=== PATIENT | male | born 1990 | race Caucasian/White ===

== ENCOUNTER 2020-12-07 03:14 | Emergency (ER) | payer SELFPAY ==
--- NOTE | ~2020-12-07 | XR_ITS ---
EXAMINATION: XR chest 2V EXAM DATE: 12/07/2020 03:49 INDICATION: Left chest pain X 1 HOUR. TECHNIQUE: Frontal and lateral projections of the chest obtained and reviewed. Comparison is made to prior examination from 09/06/2018. FINDINGS: The lungs are clear. There are no pleural effusions. The cardiomediastinal silhouette is within normal limits. There is no pneumothorax suspected. The bones and soft tissues are unremarkab le. IMPRESSION: No acute cardiopulmonary findings. Reviewed, dictated and finalized at location A.
[2020-12-07 03:14] VITALS: BP 150/96; PULSE 97; RESP 20; TEMP 36.6; O2SAT 97
--- NOTE | 2020-12-07 03:35 | ECG_ITS ---
Measurements Intervals [place] Rate: 110 P: 79 [place]: 120 QRS: 88 QRSD: 94 T: 58 QT: 320 QTc: 434 Interpretive Statements SINUS TACHYCARDIA INCOMPLETE RIGHT BUNDLE BRANCH BLOCK MINIMAL Q WAVES- ANTEROLAT/INF LEADS ABNORMAL ECG Electronically Signed On 12-07-2020 8:31:23 CDT by Ravinder Herbert D.O.
[2020-12-07 03:39] VITALS: PULSE 97
[2020-12-07 03:43] LABS: Basophils Absolute Auto 0.04 K/mm3 (0.00-0.10); Basophils Percent Auto 0.3 % (0.0-1.0); Eosinophils Absolute Auto 0.05 K/mm3 (0.02-0.50); Eosinophils Percent Auto 0.4 % (1.0-6.0); Hematocrit 44.3 % (40.0-54.0); Hemoglobin 15.2 g/dL (14.0-18.0); Immature Granulocyte Absolute 0.06 K/mm3 (0.00-0.00); Immature Granulocyte Percent A 0.4 % (0.0-0.0); Lymphocytes Absolute Auto 2.32 K/mm3 (1.10-4.50); Mean Corpuscular HGB Conc 34.3 g/dL (32.0-36.0); Mean Corpuscular Volume 87.4 fL (78.0-102.0); Mean Platelet Volume 9.5 fl (8.7-11.0); Monocytes Absolute Auto 0.99 K/mm3 (0.10-0.90); Monocytes Percent Auto 7.3 % (2.0-11.0); Neutrophils Absolute Auto 10.2 K/mm3 (1.7-7.2); Neutrophils Percent Auto 74.6 % (50.0-70.0); Platelet Count Result 285 K/mm3 (150-420); Red Blood Count 5.07 M/mm3 (4.70-6.10); Red Cell Distribution Width 12.1 % (11.6-14.4); White Blood Count 13.6 K/mm3 (4.8-10.8)
[2020-12-07] MEDS: SODIUM CHLORIDE 0.9% IV 1,000 ML 999 ML IV CONT (03:52)
[2020-12-07 03:59] LABS: Alanine Aminotransferase 27 U/L (16-63); Albumin Level 4.3 g/dL (3.4-5.0); Alkaline Phosphatase 88 U/L (46-116); Anion Gap 9 mmol/L (8-16); Aspartate Amino Transferase 25 U/L (15-37); Bilirubin,Total 0.3 mg/dL (0.00-1.00); Blood Urea Nitrogen 13 mg/dL (7-18); Calcium 9.1 mg/dL (8.5-10.1); Carbon Dioxide 30 mmol/L (21-32); Chloride 101 mmol/L (98-108); Creatine Kinase 486 U/L (39-308); Estimated CRCL calculation 88 ml/min; Estimated Glomerular Filt Rate > 60; Glucose 92 mg/dL (70-99); Osmolality Calculated 290 mOsm/kg (285-295); Potassium 3.3 mmol/L (3.5-5.1); Sodium 140 mmol/L (136-145); Total Protein 7.2 g/dL (6.4-8.2)
--- NOTE | 2020-12-07 04:10 | ED.CHESTPAIN ---
HPI - Chest Pain General Chief Complaint: Chest Pain Stated Complaint: Chest Pain Source: patient Mode of arrival: ambulatory Limitations: no limitations History of Present Illness HPI narrative: this is a 30-year-old male presents with some chest discomfort off and on for the last couple of days history of meth abuse with some shortness of breath no nausea vomiting no abdominal pain no fever chills complaint: chest pain Pertinent past history: prior [place] Onset (ago): day(s) Timing of current episode: constant Prior episodes: Yes Onset: during rest and during exertion Pain radiation: none Severity: mild Quality: aching Relieving factors: nothing Exacerbating factors: nothing Related Data Home Medications Medication Instructions Recorded Confirmed No Home Medications 12/07/20 12/07/20 Allergies Allergy/AdvReac Type Severity Reaction Status Date / Time No Known Allergies Allergy Unverified 09/21/17 16:33 Review of Systems Review of Systems: All systems reviewed & are unremarkable except as noted in HPI and below PMFSH Past Medical History Medical History No active medical problems Surgical History Surgical History No history of previous surgery Social History Social History Smoking packs per day: 1 Smoking cigarettes per day: 20.0 Years smoked: 12 Smoking pack-years: 12.00 Smoking status: Current every day smoker Tobacco type: cigarettes Alcohol intake: current Substance use: never Substance use type: marijuana, amphetamines and methamphetamine Exam Const: General: no acute distress Orientation/consciousness: patient oriented x3 HENMT: Head: normal to inspection Eyes: Conjunctivae: conjunctivae normal Pupils: Equal, round and reactive pupils present Neck: Neck: normal visual inspection and no lymphadenopathy Chest: Chest palpation & inspection: normal inspection of the chest Resp: Effort & Inspection: normal respiratory effort Cardio: Rate: regular rate Rhythm: regular rhythm GI: Auscultation: normal bowel sounds Skin: General skin exam: normal color Rashes: no rashes Extrem: General: normal to inspection Psych: Appearance: disheveled Mental Status: mental status grossly normal Affect: Anxious affect present Course Course Emergency Course: EKG and labs reviewed with patient and advised follow-up with his primary care physician Vital Signs Vital signs: Vital Signs Temperature 36.6 C 12/07/20 03:14 Pulse Rate 97 12/07/20 03:14 Respiratory Rate 20 12/07/20 03:14 Blood Pressure 150/96 H 12/07/20 03:14 Pulse Oximetry 97 12/07/20 03:14 Temperature 36.6 C 12/07/20 03:14 Pulse Rate 97 12/07/20 03:39 Respiratory Rate 20 12/07/20 03:14 Blood Pressure 150/96 H 12/07/20 03:14 Pulse Oximetry 97 12/07/20 03:14 MDM - Chest Pain Lab Data Result diagrams: 12/07/20 03:33 12/07/20 03:33 Labs: Lab Results 12/07/20 12/07/20 Range/Units 03:33 03:33 WBC 13.6 H (4.8-10.8) K/mm3 RBC 5.07 (4.70-6.10) M/mm3 Hgb 15.2 (14.0-18.0) g/dL Hct 44.3 (40.0-54.0) % MCV 87.4 (78.0-102.0) fL MCH 30.0 (27.0-31.0) pg MCHC 34.3 (32.0-36.0) g/dL RDW 12.1 (11.6-14.4) % Plt Count 285 (150-420) K/mm3 MPV 9.5 (8.7-11.0) fl Immature Gran % (Auto) 0.4 H (0.0-0.0) % Neut % (Auto) 74.6 H (50.0-70.0) % Lymph % (Auto) 17.0 L (18.0-42.0) % [facility] [place] [facility] % (Auto) 7.3 (2.0-11.0) % Eos % (Auto) 0.4 L (1.0-6.0) % Baso % (Auto) 0.3 (0.0-1.0) % Lymph # (Auto) 2.32 (1.10-4.50) K/mm3 [facility] [place] [facility] # (Auto) 0.99 H (0.10-0.90) K/mm3 Eos # (Auto) 0.05 (0.02-0.50) K/mm3 Baso # (Auto) 0.04 (0.00-0.10) K/mm3 Abs Immat Gran (auto) 0.06 H (0.00-0.00) K/mm3 Absolute Neuts (auto) 10.2 H (1.7-7.2) K/mm3
[2020-12-07 04:17] VITALS: BP 128/75; PULSE 93; RESP 20; TEMP 36.9; O2SAT 98
== END 2020-12-07 04:27 | disposition home or self-care (01) ==
PROVIDERS: Emergency Provider Emergency Medicine; PCP Family Medicine
DX: M94.0 Chondrocostal junction syndrome [Tietze] (principal); R07.89 Other chest pain
CPT/HCPCS: 36415; 71046; 80053; 82550; 84484; 85025; 93005; 99283; 99284; J7030

== ENCOUNTER 2021-04-14 12:55 | Emergency (ER) | payer OTHER, SELFPAY ==
--- NOTE | ~2021-04-14 | XR_ITS ---
EXAMINATION: XR chest 2V 04/14/2021 13:14 INDICATION: Chest pain PROCEDURE: 2 view chest COMPARISON: Comparison to multiple prior studies sequentially, with oldest reviewed study dated 02/21. FINDINGS: The lungs are clear. The cardiomediastinal silhouette is within normal limits. There are no pleural effusions. There is no pneumothorax suspected. IMPRESSION: 1: NO ACUTE CARDIOPULMONARY DISEASE. Reviewed, dictated and finalized at location A.
--- NOTE | 2021-04-14 12:57 | ECG_ITS ---
Measurements Intervals [place] Rate: 94 P: 75 [place]: 127 QRS: 87 QRSD: 86 T: 55 QT: 330 QTc: 415 Interpretive Statements SINUS RHYTHM ST ELEVATION IN ANTEROLAT/INF LEADS, PROBABLY EARLY REPOLARIZATION MINIMAL Q WAVES- ANTEROLAT/INF LEADS BORDERLINE ECG Electronically Signed On 04-14-2021 14:40:50 CDT by Ravinder Herbert D.O.
--- NOTE | 2021-04-14 13:14 | PC.NURSE ---
patient caught attempting to leave ED with IV established by EMS, patient declines any other testing and requests to leave. Patient alert x3 at time of walk out. patient declines triage.
== END 2021-04-14 13:14 | disposition left against medical advice (07) ==
PROVIDERS: Emergency Provider Emergency Medicine; PCP Family Medicine
DX: Z53.21 Procedure and treatment not carried out due to patient leaving prior to being seen by health care provider (principal); R07.9 Chest pain, unspecified
CPT/HCPCS: 71046; 93005; 99199

== ENCOUNTER 2021-05-05 10:14 | Emergency (ER) | payer OTHER, SELFPAY ==
--- NOTE | ~2021-05-05 | XR_ITS ---
EXAMINATION: XR chest 1V portable DATE: 05/05/2021 10:35 INDICATION: Shortness of breath TECHNIQUE: frontal view of the chest was obtained. COMPARISON: Chest radiograph dated 04/14/2021 FINDINGS: The lungs remain clear with no focal airspace opacities, pulmonary edema, pleural effusion or pneumot horax. Symmetric bilateral nipple shadows project over the lateral aspect of the bilateral lower lung zones. The cardiomediastinal silhouette is normal. Visualized bones and soft tissues are unremarkabl e. IMPRESSION: 1. No acute cardiopulmonary disease. Reviewed, dictated and finalized at location A. ENGINEER
--- NOTE | 2021-05-05 10:17 | ECG_ITS ---
Measurements Intervals [place] Rate: 102 P: 78 [place]: 124 QRS: 86 QRSD: 94 T: 54 QT: 346 QTc: 452 Interpretive Statements SINUS TACHYCARDIA MINIMAL Q WAVES- ANTEROLAT/INF LEADS ST ELEVATION IN ANTEROLAT/INF LEADS, PROBABLY EARLY REPOLARIZATION BORDERLINE ECG Electronically Signed On 05-06-2021 6:37:35 MEDICAL IMAGING TECH by Ravinder Herbert D.O.
[2021-05-05 10:27] VITALS: BP 142/107; PULSE 96; RESP 18; TEMP 36.9; O2SAT 100
[2021-05-05 10:33] LABS: Basophils Absolute Auto 0.02 K/mm3 (0.00-0.10); Basophils Percent Auto 0.2 % (0.0-1.0); Eosinophils Absolute Auto 0.07 K/mm3 (0.02-0.50); Eosinophils Percent Auto 0.6 % (1.0-6.0); Hematocrit 43.6 % (40.0-54.0); Immature Granulocyte Absolute 0.04 K/mm3 (0.00-0.00); Immature Granulocyte Percent A 0.3 % (0.0-0.0); Lymphocytes Percent Auto 15.5 % (18.0-42.0); Mean Corpuscular HGB Conc 34.4 g/dL (32.0-36.0); Mean Corpuscular Volume 87.2 fL (78.0-102.0); Mean Platelet Volume 9.1 fl (8.7-11.0); Monocytes Absolute Auto 1.02 K/mm3 (0.10-0.90); Monocytes Percent Auto 8.8 % (2.0-11.0); Neutrophils Absolute Auto 8.7 K/mm3 (1.7-7.2); Neutrophils Percent Auto 74.6 % (50.0-70.0); Platelet Count Result 309 K/mm3 (150-420); Red Cell Distribution Width 12.7 % (11.6-14.4); White Blood Count 11.6 K/mm3 (4.8-10.8)
[2021-05-05] MEDS: ASPIRIN 325 MG ENTERIC TABLET PO (10:37)
[2021-05-05] MEDS: SODIUM CHLORIDE 0.9% IV 1,000 ML 999 ML IV CONT (10:37)
[2021-05-05 10:52] LABS: Alanine Aminotransferase 33 U/L (16-63); Albumin Level 3.8 g/dL (3.4-5.0); Alkaline Phosphatase 65 U/L (46-116); Anion Gap 8 mmol/L (8-16); Aspartate Amino Transferase 32 U/L (15-37); Bilirubin,Total 0.6 mg/dL (0.00-1.00); Blood Urea Nitrogen 9 mg/dL (7-18); Calcium 9.3 mg/dL (8.5-10.1); Carbon Dioxide 30 mmol/L (21-32); Chloride 100 mmol/L (98-108); Estimated CRCL calculation 70 ml/min; Estimated Glomerular Filt Rate > 60; Glucose 84 mg/dL (70-99); Lactic Acid Reflex 0.8 mmol/L (0.4-2.0); Osmolality Calculated 283 mOsm/kg (285-295); Potassium 3.4 mmol/L (3.5-5.1); Sodium 138 mmol/L (136-145); Total Protein 6.6 g/dL (6.4-8.2); Troponin I 11.5 ng/L (0.00-60.4)
[2021-05-05 10:54] LABS: Ethanol < 3 mg/dL (0-6)
--- NOTE | 2021-05-05 11:01 | PC.NURSE ---
Urine taken to lab.
[2021-05-05 11:07] LABS: Add Urine Microscopic? NO; Appearance Urine Clear (Clear); Bilirubin Urine Negative (Negative); Blood Urine Negative (Negative); Color Urine Light Yellow (Yellow); Glucose Urine UA Negative (Negative); Ketones Urine Negative (Negative); Leukocyte Esterase Ur Negative (Negative); Nitrate Urine Negative (Negative); Protein Urine Negative (Negative); Specific Grav Ur <= 1.005 (1.010-1.020); Urobilinogen Urine 0.2 mg/dL (0.2-1.0)
[2021-05-05 11:12] LABS: Amphetamine Screen Urine Negative (Negative); Barbiturate Screen Urine Negative (Negative); Benzodiazepines Screen Urine Negative (Negative); Cannabinoid Screen Urine Negative (Negative); Cocaine Screen Urine Negative (Negative); Methadone Screen Urine Negative (Negative); Opiate Screen Urine Negative (Negative); Phencyclidine Screen Urine Negative (Negative)
--- NOTE | 2021-05-05 11:32 | PC.NURSE ---
Ok for pt to have sandwich per Dr. Paulino
--- NOTE | 2021-05-05 11:35 | ED.CHESTPAIN ---
HPI - Chest Pain General Chief Complaint: Chest Pain Stated Complaint: ambulance Time Seen by Provider: 05/05/21 10:16 Source: patient, EMS and RN notes reviewed Mode of arrival: EMS Limitations: no limitations History of Present Illness MD complaint: chest pain and other (and very anxious. pt denied recent etoh, drug or weed use. ) Pertinent past history: prior MA and other (CVA x 2 years ago) Onset (ago): hour(s) (6) Timing of current episode: constant Prior episodes: Yes Onset: during rest and during exertion Pain location: left chest Pain radiation: none Severity: mild Pain scale (0-10): 3 Quality: aching and dull Relieving factors: nothing Exacerbating factors: exertion Treatment prior to arrival: oxygen Related Data Home Medications Medication Instructions Recorded Confirmed No Home Medications 12/07/20 12/07/20 Allergies Allergy/AdvReac Type Severity Reaction Status Date / Time No Known Allergies Allergy Unverified 09/21/17 16:33 Review of Systems Review of Systems: All systems reviewed & are unremarkable except as noted in HPI and below Cardiovascular: Cardiovascular: Reports chest pain PMFSH Past Medical History Medical History Angina at rest No active medical problems Surgical History Surgical History No history of previous surgery Social History Social History Smoking packs per day: 1 Smoking cigarettes per day: 20.0 Years smoked: 12 Smoking pack-years: 12.00 Smoking status: Current every day smoker Tobacco type: cigarettes Alcohol intake: current Alcohol use details: drinks on the weekends Substance use: never Substance use type: marijuana, amphetamines and methamphetamine Exam Const: General: cooperative, no acute distress, alert and awake Nutritional Appearance: well nourished Orientation/consciousness: patient oriented x3 Limitations: no limitations HENMT: Head: normal to inspection, normocephalic and atraumatic Ears: hearing grossly normal bilaterally and external ears normal General nose exam: Normal external nose present and Normal nares present Face and sinus: normal facial exam Mouth: Yes Normal oral and palatal mucosa present, Yes lip normal, Yes tongue normal and Yes moist mucous membranes Throat: posterior oropharynx normal Eyes: General: appearance normal, both eyes and all related structures Visual Chaudhary: normal visual chaudhary by confrontation Eyelids: eyelids normal Conjunctivae: conjunctivae normal Sclera: sclerae normal Cornea: corneas normal Pupils: Equal, round and reactive pupils present EOM: EOMs intact bilaterally Neck: Neck: normal visual inspection, full ROM, no lymphadenopathy, no meningeal signs and trachea midline Lymphatic: no lymphadenopathy noted Chest: Chest palpation & inspection: normal inspection of the chest and normal palpation of entire chest wall Resp: Effort & Inspection: normal respiratory effort and able to speak in complete sentences Auscultation: clear to auscultation bilaterally Percussion: percussion normal Cardio: Jugular venous distension: no JVD Palpation: normal PMI Rate: regular rate Rhythm: regular rhythm Heart sounds: S1 normal heart sound present and S2 normal heart sound present GI: Inspection: normal to inspection GI Palp: No abdominal tenderness, Yes Soft to palpation and No Tenderness to palpation present (GI) Percussion: Yes normal to percussion Auscultation: normal bowel sounds : General: Yes bladder normal to palpation and Yes no CVA tenderness Back/Spine/Pelvis: Back: no CVA tenderness Thoracic/Lumbar Spine: thoracic and lumbar spine normal to inspection Skin: General skin exam: normal color and no rashes or lesions noted Rashes: no rashes Trauma: no lacerations or abrasions Wounds: no wounds Hair: normal Na
[2021-05-05 11:40] VITALS: BP 130/95; PULSE 90; RESP 18; O2SAT 96
[2021-05-05] MEDS: POTASSIUM CHLORIDE 20 MEQ TABLET PO (11:42)
--- NOTE | 2021-05-05 11:45 | PC.NURSE ---
Pt states he is feeling better. Dr. Paulino notified.
--- NOTE | 2021-05-05 12:12 | PC.NURSE ---
Pt asked that we call Stephen for a ride. Professional Security Officer was able to reach [facility] and he states he will come pick him up.
== END 2021-05-05 12:05 | disposition home or self-care (01) ==
PROVIDERS: Emergency Provider Emergency Medicine; PCP Family Medicine
DX: R07.89 Other chest pain (principal)
CPT/HCPCS: 36415; 71045; 80053; 80307; 81003; 83605; 84484; 85025; 93005; 96360; 99283; 99284; A9270; J7030

== ENCOUNTER 2021-06-01 13:58 | Emergency (ER) | payer OTHER, SELFPAY ==
[2021-06-01 14:40] VITALS: BP 128/85; PULSE 94; RESP 20; TEMP 37.2; O2SAT 100
--- NOTE | 2021-06-01 15:14 | ED.SKABFB ---
HPI - Skin/Abscess/Foreign Bdy General Chief complaint: Skin/Abscess/Foreign Body Stated complaint: left hand and both knees injured Source: patient Mode of arrival: EMS Limitations: no limitations History of Present Illness HPI narrative: this is a 30-year-old homeless individual that presents with some lesions that are scattered over his arms and legs and has few lesions on his left hand with erythema swelling with some yellow drainage patient is afebrile appears otherwise comfortable with some no chest pain no shortness of breath. complaint: abscess/boil Onset (ago): week(s) Location: L hand and LLE Severity: moderate Related Data Allergies Allergy/AdvReac Type Severity Reaction Status Date / Time No Known Allergies Allergy Unverified 09/21/17 16:33 Review of Systems Review of Systems: All systems reviewed & are unremarkable except as noted in HPI and below PMFSH Past Medical History Medical History Angina at rest No active medical problems Surgical History Surgical History No history of previous surgery Social History Social History Smoking packs per day: 1 Smoking cigarettes per day: 20.0 Years smoked: 12 Smoking pack-years: 12.00 Smoking status: Current every day smoker Tobacco type: cigarettes Alcohol intake: current Alcohol use details: drinks on the weekends Substance use: never Substance use type: marijuana, amphetamines and methamphetamine Exam Const: General: no acute distress HENMT: Head: normal to inspection Eyes: Conjunctivae: conjunctivae normal Pupils: Equal, round and reactive pupils present Neck: Neck: normal visual inspection Chest: Chest palpation & inspection: normal inspection of the chest Resp: Effort & Inspection: normal respiratory effort Auscultation: clear to auscultation bilaterally Cardio: Rate: regular rate GI: GI Palp: Yes Soft to palpation Percussion: Yes normal to percussion Urinary Catheter: Urinary Catheter: patent and draining Skin: Other: Skin lesions left knee and left hand with the left IR Sabiha warmth tenderness and swelling Neuro: General: patient oriented x3 and moves all extremities Course Course Emergency Course: blood work reviewed with patient, patient received a g of IM ceftriaxone Critical Care Time Critical Care Time Critical Care Time: No Discharge Plan Discharge Clinical Impression: Cellulitis Qualifiers: Site of cellulitis: extremity Site of cellulitis of extremity: upper extremity Laterality: left Qualified Code(s): L03.114 - Cellulitis of left upper limb Abscess of skin or subcutaneous tissue Qualifiers: Site of cutaneous abscess: extremity Site of cutaneous abscess of extremity: hand Laterality: left Qualified Code(s): L02.512 - Cutaneous abscess of left hand Patient Disposition: Home, Self-Care Condition: Stable Instructions: Antibiotic Form, Cellulitis (ED) Additional Instructions: take medicine as prescribed and follow-up with primary care physician within 1 week for further evaluation and treatment. Prescriptions: New amoxicillin-pot clavulanate [Augmentin] 875-125 mg tablet 1 tablet PO Q12H Qty: 20 RF: 0 Follow-up/Referrals: UNKNOWN,DOCTOR [Primary Care Provider] - Time of Disposition: 15:22
[2021-06-01] MEDS: cefTRIAXone 1 GM VIAL IM (15:22)
== END 2021-06-01 15:25 | disposition home or self-care (01) ==
PROVIDERS: Emergency Provider Emergency Medicine
DX: L03.114 Cellulitis of left upper limb (principal); L02.512 Cutaneous abscess of left hand
CPT/HCPCS: 96372; 99283; J0696

== ENCOUNTER 2021-07-25 04:51 | Emergency (ER) | payer OTHER, SELFPAY ==
[2021-07-25 05:02] VITALS: BP 130/90; PULSE 116; RESP 22; TEMP 37.2; O2SAT 98
--- NOTE | 2021-07-25 05:39 | ED.EXTPRO ---
HPI - Extremity Problem General Chief complaint: Unspecified Stated complaint: Right Leg Pain Time Seen by Provider: 07/25/21 05:36 Source: patient Mode of arrival: EMS Limitations: no limitations History of Present Illness HPI Narrative: 30-year-old man is previously well comes in today complaining of a wet splint on his right lower leg. He was diagnosed with an ankle fracture approximately 10 days ago in [place]. He states he does not a orthopedist to follow up with nor does he have a working set of crutches. He denies injuries, numbness, or swelling. Complaint: other Onset (ago): day(s) (10) Pain Consistency: constant Location: right and lower extremity Quality: aching and sharp Relieving factors: rest Exacerbating factors: weight bearing and palpation Associated symptoms: denies other symptoms Related Data Allergies Allergy/AdvReac Type Severity Reaction Status Date / Time No Known Allergies Allergy Unverified 09/21/17 16:33 Review of Systems Review of Systems: All systems reviewed & are unremarkable except as noted in HPI and below Constitutional: Constitutional: Denies chills and Denies fever(s) ENT: Denies nasal congestion and Denies sore throat Respiratory: Respiratory: Denies cough and Denies dyspnea Gastrointestinal: Gastrointestinal: Denies nausea and Denies vomiting Musculoskeletal: Musculoskeletal: Reports arthralgias and Denies joint swelling Integumentary/Breasts: Skin/Breast: Denies pruritus, Denies erythema and Denies rash Neurologic: Denies vertigo, Denies dizziness, Denies syncope and Denies numbness PMFSH Past Medical History Medical History Angina at rest No active medical problems Surgical History Surgical History No history of previous surgery Social History Social History Smoking packs per day: 1 Smoking cigarettes per day: 20.0 Years smoked: 12 Smoking pack-years: 12.00 Smoking status: Current every day smoker Tobacco type: cigarettes Alcohol intake: current Alcohol use details: drinks on the weekends Substance use: never Substance use type: marijuana, amphetamines and methamphetamine Exam Const: General: healthy appearing, no acute distress and alert Orientation/consciousness: patient oriented x3 Limitations: no limitations Resp: Effort & Inspection: normal respiratory effort and not labored Auscultation: clear to auscultation bilaterally, no rales, no rhonchi and no wheezes Cardio: Rate: regular rate Rhythm: regular rhythm Heart sounds: no murmurs Skin: General skin exam: normal color, no jaundice and no pallor Rashes: no rashes Neuro: General: patient oriented x3, moves all extremities, no focal motor deficits and CN's II-XI intact bilaterally Speech: normal speech Gait exam (Neuro): Normal gait present Extrem: General: no clubbing, cyanosis or edema Other: Tenderness at the right lateral malleolus and anterior ankle joint. There is minimal swelling. Ecchymoses above the medial heel and the distal dorsal right foot. Psych: Appearance: grossly normal and well kempt Mental Status: mental status grossly normal Affect: normal affect Attitude: cooperative Thought content: Yes Normal thought content present Course Vital Signs Vital signs: Vital Signs Temperature 37.2 C 07/25/21 05:02 Pulse Rate 116 H 07/25/21 05:02 Respiratory Rate 22 H 07/25/21 05:02 Blood Pressure 130/90 07/25/21 05:02 Pulse Oximetry 98 07/25/21 05:02 Temperature 37.2 C 07/25/21 05:02 Pulse Rate 116 H 07/25/21 05:02 Respiratory Rate 22 H 07/25/21 05:02 Blood Pressure 130/90 07/25/21 05:02 Pulse Oximetry 98 07/25/21 05:02 Discharge Plan Discharge Clinical Impression: Ankle fracture Qualifiers: Encounter type: initial encounter Fracture type: closed Late
[2021-07-25 06:20] VITALS: BP 130/90; PULSE 116; RESP 22; TEMP 37.2; O2SAT 98
== END 2021-07-25 06:23 | disposition home or self-care (01) ==
PROVIDERS: Emergency Provider Emergency Medicine
DX: S82.891A Other fracture of right lower leg, initial encounter for closed fracture (principal)
CPT/HCPCS: 99283

== ENCOUNTER 2021-07-27 10:47 | Emergency (ER) | payer OTHER, SELFPAY ==
--- NOTE | ~2021-07-27 | XR_ITS ---
EXAMINATION: XR ankle RT min 3V DATE: 07/27/2021 11:10 INDICATION: Right ankle pain. TECHNIQUE: 4 views of right ankle were obtained. COMPARISON: Right ankle radiographs 06/18/2014 FINDINGS: There is a spiral fracture of distal fibula with medial aspect of the fracture line at the level of the tibial plafond. The distal fracture fragment demonstrates 3 mm posterolateral displaceme nt. There is a nondisplaced fracture of the posterior malleolus. There are enthesophytes at the poste rior and plantar aspects of calcaneal tuberosity. Joint spaces are normal. IMPRESSION: 1. Spiral fracture of distal fibula. 2. Fracture of posterior malleolus. Reviewed, dictated and finalized at location A. ERN SETTER
[2021-07-27 10:49] VITALS: BP 154/84; PULSE 103; RESP 16; TEMP 36.6; O2SAT 99
--- NOTE | 2021-07-27 12:02 | ED.LOWEXIN ---
HPI - Extremity Injury (Lower) General Chief Complaint: Extremity Injury, Lower Stated Complaint: right ankle injury Time Seen by Provider: 07/27/21 11:24 Source: patient, RN notes reviewed and old records reviewed Mode of arrival: ambulatory Limitations: no limitations History of Present Illness HPI Narrative: This is a 30 year old male who presents for evaluation of right ankle fracture. Patient suffered a right ankle fracture when he was out of town approximately 2 weeks ago. He was placed in splint but he removed splint. Patient was evaluated in [place] 2 days ago . He was prescribed pain medication and given referrals to ortho. Patient came to ER because he is having pain and he has not followed up with ortho. His mother is at bedside and she is unaware that patient was seen in ER 2 days ago. She is unaware that patient was prescribed pain medication. Patient states he is not bearing weight onto his ankle. Related Data Allergies Allergy/AdvReac Type Severity Reaction Status Date / Time No Known Allergies Allergy Unverified 09/21/17 16:33 Review of Systems Review of Systems: All systems reviewed & are unremarkable except as noted in HPI and below PMFSH Past Medical History Medical History (Updated 07/27/21 @ 12:10 by Annie Fuentes MD) Angina at rest No active medical problems Surgical History Surgical History (Updated 07/27/21 @ 12:05 by Annie Fuentes MD) H/O hand surgery Social History Social History Smoking packs per day: 1 Smoking cigarettes per day: 20.0 Years smoked: 12 Smoking pack-years: 12.00 Smoking status: Current every day smoker Tobacco type: cigarettes Alcohol intake: current Alcohol use details: drinks on the weekends Substance use: never Substance use type: marijuana, amphetamines and methamphetamine Exam Const: General: no acute distress and alert Orientation/consciousness: patient oriented x3 Eyes: EOM: EOMs intact bilaterally Resp: Effort & Inspection: normal respiratory effort Neuro: General: patient oriented x3 and moves all extremities Extrem: Other: right ankle right foot ecchymosis, mild swelling. palpable pedal pulses Psych: Mental Status: mental status grossly normal Affect: normal affect Course Reevaluation(s) Reevaluation #1: I reviewed patient 's last ED visit and his discharge packet. Patient was prescribed pain medication and I discussed with mother location prescription sent and she was given phone number. Patient is being placed back in splint and stressed to keep on. I also went back over to not bear weight and how to properly elevated. Date: 07/27/21 Time: 12:06 Vital Signs Vital signs: Vital Signs Temperature 98 F 07/27/21 10:49 Pulse Rate 103 H 07/27/21 10:49 Respiratory Rate 16 07/27/21 10:49 Blood Pressure 154/84 H 07/27/21 10:49 Pulse Oximetry 99 07/27/21 10:49 Temperature 98 F 07/27/21 10:49 Pulse Rate 103 H 07/27/21 10:49 Respiratory Rate 16 07/27/21 10:49 Blood Pressure 154/84 H 07/27/21 10:49 Pulse Oximetry 99 07/27/21 10:49 MDM - Extremity Injury (Lower) Imaging Data Radiologist's impression: ITS Impressions Ankle X-Ray 07/27/21 11:13 IMPRESSION: 1. Spiral fracture of distal fibula. 2. Fracture of posterior malleolus. Discharge Plan Discharge Clinical Impression: Fracture of right tibia and fibula Qualifiers: Encounter type: subsequent encounter Fracture type: closed Patient Disposition: Home, Self-Care Condition: Stable Instructions: Antibiotic Form, Ankle Fracture (ED), Splint Care (ED) Additional Instructions: Please keep splint on until you are seen by orthopedic surgeon. Pick your pain medications from pharmacy. Keep leg elevated as I discussed when you are not up . Apply to reduce pain and swelling. Prescriptions: No Action hydrocodone-acetaminophen 5-3
== END 2021-07-27 12:20 | disposition home or self-care (01) ==
PROVIDERS: Emergency Provider General Practice
DX: S82.441A Displaced spiral fracture of shaft of right fibula, initial encounter for closed fracture (principal); S82.891A Other fracture of right lower leg, initial encounter for closed fracture; F17.210 Nicotine dependence, cigarettes, uncomplicated; T14.90XA Injury, unspecified, initial encounter
CPT/HCPCS: 29515; 73610; 99284

== ENCOUNTER 2022-07-05 14:15 | Emergency (ER) | payer OTHER, SELFPAY ==
[2022-07-05 14:16] VITALS: BP 129/84; PULSE 95; RESP 16; TEMP 37.2; O2SAT 98
--- NOTE | 2022-07-05 14:21 | ED.EXTPRO ---
HPI - Extremity Problem General Chief complaint: Wound/Laceration Stated complaint: infection of elbow Time Seen by Provider: 07/05/22 14:21 Source: patient and RN notes reviewed Mode of arrival: ambulatory Limitations: no limitations History of Present Illness Complaint: extremity pain and extremity swelling Onset (ago): week(s) (1) Pain Consistency: constant Location: upper extremity Quality: burning, aching and dull Radiation: none Relieving factors: rest Exacerbating factors: range of motion and palpation Associated symptoms: denies other symptoms Related Data Home Medications Medication Instructions Recorded Confirmed No Home Medications 07/05/22 07/05/22 Allergies Allergy/AdvReac Type Severity Reaction Status Date / Time No Known Allergies Allergy Unverified 09/21/17 16:33 Review of Systems Review of Systems: All systems reviewed & are unremarkable except as noted in HPI and below Constitutional: Constitutional: Denies chills and Denies fever(s) PMFSH Past Medical History Medical History Angina at rest No active medical problems Surgical History Surgical History H/O hand surgery Social History Social History Smoking packs per day: 1 Smoking cigarettes per day: 20.0 Years smoked: 12 Smoking pack-years: 12.00 Smoking status: Current every day smoker Tobacco type: cigarettes Alcohol intake: current Alcohol use details: drinks on the weekends Substance use: never Substance use type: marijuana, amphetamines and methamphetamine Exam Const: General: healthy appearing, no acute distress and alert Nutritional Appearance: well nourished Orientation/consciousness: patient oriented x3 Limitations: no limitations HENMT: Head: normal to inspection Ears: external ears normal Face/Nose/Sinus: Normal external nose present Face and sinus: normal facial exam Mouth: Yes moist mucous membranes Eyes: Conjunctivae: conjunctivae normal Pupils: Equal, round and reactive pupils present EOM: EOMs intact bilaterally Neck: Neck: normal visual inspection Resp: Effort & Inspection: normal respiratory effort Auscultation: clear to auscultation bilaterally Cardio: Rate: regular rate Rhythm: regular rhythm GI: GI Palp: Yes Soft to palpation and No Tenderness to palpation present (GI) Auscultation: normal bowel sounds Back/Spine/Pelvis: Cervical Spine: cervical ROM normal Thoracic/Lumbar Spine: thoraco-lumbar ROM normal Skin: General skin exam: normal color Neuro: General: patient oriented x3, moves all extremities, no focal motor deficits and CN's II-XI intact bilaterally Speech: normal speech Gait exam (Neuro): Normal gait present Extrem: General: normal exam except as noted and no clubbing, cyanosis or edema Right upper extremity: elbow/forearm tenderness of the olecranon, swelling of the olecranon, warmth other ( soft tissue over like [place]) and other ( increased erythema small ulcer type wound from previous abrasion) Psych: Mental Status: mental status grossly normal Affect: normal affect Attitude: cooperative Course Vital Signs Vital signs: Vital Signs Temperature 37.2 C 07/05/22 14:16 Pulse Rate 95 07/05/22 14:16 Respiratory Rate 16 07/05/22 14:16 Blood Pressure 129/84 07/05/22 14:16 Pulse Oximetry 98 07/05/22 14:16 Oxygen Delivery Room Air 07/05/22 14:16 Temperature 37.1 C 07/05/22 14:34 Pulse Rate 91 07/05/22 14:34 Respiratory Rate 20 07/05/22 14:34 Blood Pressure 129/84 07/05/22 14:34 Pulse Oximetry 98 07/05/22 14:34 Oxygen Delivery Room Air 07/05/22 14:34 MDM - Extremity (Nontraumatic) MDM Narrative Medical decision making narrative: differential diagnosis: Cellulitis, localized abscess, olecranon bursitis, elbow joint infection. Discharge Plan Di
[2022-07-05 14:34] VITALS: BP 129/84; PULSE 91; RESP 20; TEMP 37.1; O2SAT 98
--- NOTE | 2022-07-05 14:39 | PC.NURSE ---
non adhesive gauze dressing with dexter gauze applied to elbow as per instructions of dr baxter.
== END 2022-07-05 14:40 | disposition home or self-care (01) ==
LOC: CHSED 14:32
PROVIDERS: Emergency Provider Emergency Medicine
DX: L03.113 Cellulitis of right upper limb (principal); F17.210 Nicotine dependence, cigarettes, uncomplicated
CPT/HCPCS: 99283

== ENCOUNTER 2022-09-26 02:11 | Emergency (ER) | payer OTHER, SELFPAY ==
[2022-09-26 02:17] VITALS: BP 138/68; PULSE 98; RESP 20; TEMP 36.4; O2SAT 98
--- NOTE | 2022-09-26 02:35 | ED.UPPEXIN ---
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 complaint: injury to: right and elbow Onset (ago): day(s) Other Extremity Injury: Right: elbow ( Swelling with erythema warmth and tenderness) Severity: moderate Severity scale (1-10): 5 Related Data Allergies Allergy/AdvReac Type Severity Reaction Status Date / Time No Known Allergies Allergy Unverified 09/21/17 16:33 Review of Systems Review of Systems: All systems reviewed & are unremarkable except as noted in HPI and below PMFSH Past Medical History Medical History Angina at rest No active medical problems Surgical History Surgical History H/O hand surgery Social History Social History Smoking packs per day: 1 Smoking cigarettes per day: 20.0 Years smoked: 12 Smoking pack-years: 12.00 Smoking status: Current every day smoker Tobacco type: cigarettes Alcohol intake: current Alcohol use details: drinks on the weekends Substance use: never Substance use type: marijuana, amphetamines and methamphetamine Exam Const: General: healthy appearing Nutritional Appearance: well nourished Orientation/consciousness: patient oriented x3 Limitations: no limitations Neck: Neck: normal visual inspection Chest: Chest palpation & inspection: normal inspection of the chest Resp: Effort & Inspection: normal respiratory effort Auscultation: clear to auscultation bilaterally Cardio: Rhythm: regular rhythm GI: GI Palp: Yes Soft to palpation Skin: Wounds: wounds noted Other: Red and warm tender right elbow with some swelling patch of erythema approximately 4cm in diameter around the right elbow area that is warm and tender to touch. Course Course Emergency Course: Patient received a g of IM ceftriaxone and encourage patient to take his oral antibiotics that were sent to his local pharmacy. Vital Signs Vital signs: Vital Signs Temperature 36.4 C 09/26/22 02:17 Pulse Rate 98 09/26/22 02:17 Respiratory Rate 20 09/26/22 02:17 Blood Pressure 138/68 09/26/22 02:17 Pulse Oximetry 98 09/26/22 02:17 Oxygen Delivery Room Air 09/26/22 02:17 Temperature 36.4 C 09/26/22 02:17 Pulse Rate 98 09/26/22 02:17 Respiratory Rate 20 09/26/22 02:17 Blood Pressure 138/68 09/26/22 02:17 Pulse Oximetry 98 09/26/22 02:17 Oxygen Delivery Room Air 09/26/22 02:17 Critical Care Time Critical Care Time Critical Care Time: No Discharge Plan Discharge Clinical Impression: Cellulitis Qualifiers: Site of cellulitis: extremity Site of cellulitis of extremity: upper extremity Laterality: right Qualified Code(s): L03.113 - Cellulitis of right upper limb Patient Disposition: Home, Self-Care Condition: Stable Instructions: Antibiotic Form, Cellulitis (ED) Additional Instructions: advised patient to take medicine as prescribed, can take Tylenol or Motrin for pain inflammation and follow-up with primary care physician within 1 week further evaluation and treatment. Prescriptions: New amoxicillin-pot clavulanate [Augmentin] 500-125 mg tablet 1 tablet PO TID 10 Days Qty: 30 0RF amoxicillin-pot clavulanate [Augmentin] 500-125 mg tablet 1 tablet PO TID Qty: 30 0RF Follow-up/Referrals: [facility]
[2022-09-26] MEDS: cefTRIAXone 1 GM, LIDOCAINE HCL 1% LOCAL INJ 2.1 ML IM (02:38)
[2022-09-26 02:51] VITALS: BP 111/60; PULSE 88; RESP 20; TEMP 36.4; O2SAT 99
== END 2022-09-26 02:53 | disposition home or self-care (01) ==
PROVIDERS: Emergency Provider Emergency Medicine; PCP Internal Medicine
DX: L03.113 Cellulitis of right upper limb (principal); F17.210 Nicotine dependence, cigarettes, uncomplicated
CPT/HCPCS: 96372; 99283; J0696

== ENCOUNTER 2022-11-19 15:54 | Emergency (ER) | payer OTHER, SELFPAY ==
[2022-11-19 15:56] VITALS: BP 123/68; PULSE 85; RESP 20; TEMP 36.5; O2SAT 98
--- NOTE | 2022-11-19 16:52 | PC.NURSE ---
Pt walked out of department, states he no longer wishes to be seen as pt.
== END 2022-11-19 18:57 | disposition left against medical advice (07) ==
LOC: ANHED 18:46
PROVIDERS: PCP Internal Medicine
DX: M54.50 Low back pain, unspecified (principal)
CPT/HCPCS: 99199

== ENCOUNTER 2023-10-05 11:40 | Emergency (ER) | payer OTHER, SELFPAY ==
--- NOTE | ~2023-10-05 | XR_ITS ---
EXAMINATION: XR chest 1V portable DATE: 10/05/2023 11:50 INDICATION: Shortness of breath. Cough. TECHNIQUE: A single frontal view of the chest was obtained on 2 radiographs. COMPARISON: Chest single view 05/05/21 FINDINGS: There is no pneumonia, pleural effusion, or pneumothorax. The heart size is normal. IMPRESSION: 1. No acute cardiopulmonary disease. Reviewed, dictated and finalized at location A.
[2023-10-05 11:40] VITALS: BP 133/79; PULSE 70; RESP 17; TEMP 36.2; O2SAT 98
--- NOTE | 2023-10-05 11:44 | ED.URI ---
HPI - URI/Sore Throat General Chief Complaint: Upper Respiratory Infection Stated Complaint: cough/sore throat Time Seen by Provider: 10/05/23 11:41 Source: patient Mode of arrival: ambulatory Limitations: no limitations History of Present Illness HPI Narrative: Patient is a 32-year-old male with a cough and congestion for the past week. MD elicited complaint: cough, sore throat and nasal congestion Onset (ago): week(s) (1) Consistency: constant Severity: moderate Pain scale (0-10): 5 Description of mucous: yellow Able to tolerate fluids by mouth: Yes Exacerbating factors: nothing Relieving factors: nothing Associated symptoms: nasal congestion, sore throat, cough and shortness of breath Treatments prior to arrival: none Related Data Home Medications Medication Instructions Recorded Confirmed clonidine HCl 0.1 mg tablet 0.1 mg PO TID 10/05/23 10/05/23 fluoxetine 20 mg capsule 20 mg PO DAILY 10/05/23 10/05/23 hydroxyzine HCl 25 mg tablet 25 mg PO QID 10/05/23 10/05/23 Allergies Allergy/AdvReac Type Severity Reaction Status Date / Time No Known Allergies Allergy Unverified 10/05/23 11:51 Review of Systems Review of Systems: All systems reviewed & are unremarkable except as noted in HPI and below Constitutional: Constitutional: Reports no additional constitutional complaints Eyes: Eyes: Reports no additional eye complaints ENT: Reports system reviewed and no additional complaints, except as documented Cardiovascular: Cardiovascular: Reports no additional cardiovascular complaints Respiratory: Respiratory: Reports no additional respiratory complaints Gastrointestinal: Gastrointestinal: Reports no additional gastrointestinal complaints Genitourinary: Genitourinary: Reports no additional male genitourinary complaints Musculoskeletal: Musculoskeletal: Reports no additional musculoskeletal complaints Integumentary/Breasts: Skin/Breast: Reports system reviewed and no additional complaints, except as docu Neurologic: Reports system reviewed and no additional complaints, except as documented Psychiatric: Psychiatric: Reports no additional psychiatric complaints Endocrine: Endocrine: Reports no additional endocrine complaints Hematologic/Lymphatic: Hematologic/Lymphatic: Reports no additional hematologic/lymphatic complaints Allergic/Immunologic: Allergic/Immunologic: Reports no additional allergic/immunologic complaints PMFSH Past Medical History Medical History Angina at rest No active medical problems Surgical History Surgical History H/O hand surgery Social History Social History Smoking packs per day: 1 Smoking cigarettes per day: 20.0 Years smoked: 12 Smoking pack-years: 12.00 Smoking status: Current every day smoker Tobacco type: cigarettes Alcohol intake: current Alcohol use details: drinks on the weekends Substance use: never Substance use type: marijuana, amphetamines and methamphetamine Exam Const: General: ill appearing Nutritional Appearance: well nourished Orientation/consciousness: patient oriented x3 HENMT: Head: normal to inspection Ears: external ears normal Face/Nose/Sinus: Normal external nose present Eyes: Conjunctivae: conjunctivae normal Pupils: Equal, round and reactive pupils present EOM: EOMs intact bilaterally Neck: Neck: normal visual inspection Chest: Chest palpation & inspection: normal inspection of the chest Resp: Effort & Inspection: normal respiratory effort and not labored Auscultation: not clear to auscultation bilaterally, no crackles, no rales, no rhonchi, no wheezes, breath sounds present and diminished lung sounds Cardio: Rate: regular rate Rhythm: regular rhythm Heart sounds: no murmurs GI: Inspection: non-distended GI Palp: Yes Soft to palpation and No
[2023-10-05 12:30] VITALS: BP 132/85; PULSE 70; RESP 17; O2SAT 100
[2023-10-05 12:31] LABS: Strep Group A RT-PCR NOT DETECTED (Negative)
[2023-10-05 12:33] LABS: SARS-CoV-2 RNA PCR Negative (Negative)
[2023-10-05 12:36] LABS: Influenza A QL RT-PCR Negative (Negative); Influenza B QL RT-PCR Negative (Negative); RSV RNA, RT-PCR Negative (Negative)
--- NOTE | 2023-10-05 12:51 | PC.NURSE ---
Per ERP hold medications and breathing treatment, going to re-evaluate patient first.
[2023-10-05 13:00] VITALS: BP 127/76; PULSE 66; RESP 17; O2SAT 100
[2023-10-05 13:05] VITALS: PULSE 67; RESP 16; O2SAT 98
[2023-10-05] MEDS: IPRATROPIUM 0.5 MG/ALBUTEROL SULFATE 2.5 MG AMPUL.NEB 3 ML INHALATION (13:11)
--- NOTE | 2023-10-05 13:11 | PC.NURSE ---
ERP states go go ahead and give breathing treatment and ordered medications.
[2023-10-05] MEDS: methylPREDNISolone SOD SUCC 125 MG VIAL IM (13:16)
[2023-10-05] MEDS: AMOXICILLIN/CLAVULANATE K 875-125 MG TAB 1 TABLET PO (13:16)
[2023-10-05 13:40] VITALS: BP 122/70; PULSE 72; RESP 17; TEMP 36.8; O2SAT 100
== END 2023-10-05 13:40 | disposition home or self-care (01) ==
PROVIDERS: Emergency Provider Emergency Medicine; PCP Internal Medicine
DX: J40 Bronchitis, not specified as acute or chronic (principal); F17.210 Nicotine dependence, cigarettes, uncomplicated; Z20.822 Contact with and (suspected) exposure to COVID-19
CPT/HCPCS: 71045; 87637; 87651; 94640; 96372; 99283; A9270; J2919

== ENCOUNTER 2023-11-09 15:00 | Emergency (ER) | payer OTHER, SELFPAY ==
[2023-11-09 15:03] VITALS: BP 132/82; PULSE 81; RESP 19; TEMP 36.4; O2SAT 99
--- NOTE | 2023-11-09 15:42 | ED.ABDPAIN ---
HPI - Abdominal Pain General Chief Complaint: Abdominal Pain Stated Complaint: abd pain Time Seen by Provider: 11/09/23 15:42 Focused HPI: Patient is a 33 y/o male who presents to the ED with c/o abd pain. Patient reports the pain has been ongoing for the past few months, but has been progressively worsening. Pain became much worse this morning, which prompted him to come to the ED. States pain is subsided slightly currently. He has not taken anything for the pain. He notes history of varicocele repair in the past and states he was told he may need surgery in the future. He denies any testicular pain or swelling. Pain does not radiate to groin or testicles. Denies urinary complaints. Denies nausea, vomiting, constipation, fever. Reports diarrhea over last few weeks since have Influenza A. GENERAL: Well-appearing, well-nourished, and in no acute distress. HEAD: Normocephalic, atraumatic. CHEST: Clear to auscultation. ?No respiratory distress. HEART: Regular rate and rhythm.? ABD: Mild tenderness in right lower abdomen/ suprapubic region. NEURO: ?Alert and oriented x3. Patient screened in triage and initial orders placed.? ?Additional care and disposition to be based upon?diagnostic testing and treatment. Source: patient Mode of arrival: ambulatory Limitations: no limitations Related Data Home Medications Medication Instructions Recorded Confirmed No Home Medications 11/09/23 11/09/23 Allergies Allergy/AdvReac Type Severity Reaction Status Date / Time No Known Allergies Allergy Unverified 11/09/23 15:56 PMFSH Past Medical History Medical History Angina at rest No active medical problems Surgical History Surgical History H/O hand surgery Social History Social History Smoking packs per day: 1 Smoking cigarettes per day: 20.0 Years smoked: 12 Smoking pack-years: 12.00 Smoking status: Current every day smoker Tobacco type: cigarettes Alcohol intake: current Alcohol use details: drinks on the weekends Substance use: never Substance use type: marijuana, amphetamines and methamphetamine Course Vital Signs Vital signs: Vital Signs Temperature 97.5 F L 11/09/23 15:03 Pulse Rate 81 11/09/23 15:03 Respiratory Rate 19 11/09/23 15:03 Blood Pressure 132/82 11/09/23 15:03 Pulse Oximetry 99 11/09/23 15:03 Temperature 97.5 F L 11/09/23 15:03 Pulse Rate 84 11/09/23 16:00 Respiratory Rate 18 11/09/23 16:00 Blood Pressure 131/89 11/09/23 16:00 Pulse Oximetry 100 11/09/23 16:00 MDM - Abdominal Pain MDM Narrative Medical decision making narrative: MSE by LUCIEN in triage. Patient brought back to 14, left facility after triage/MSE without being seen by additional provider. This will be considered an elopement. Lab Data 11/09/23 15:52 11/09/23 15:52 Labs: Lab Results 11/09/23 11/09/23 Range/Units 15:52 15:53 WBC 9.4 (4.5-10.0) K/mm3 RBC 5.20 (4.6-6.20) M/mm3 Hgb 15.1 (14.0-18.0) g/dL Hct 45.1 (42.0-52.0) % MCV 86.7 (80-100) fl MCH 29.0 (26-34) pg MCHC 33.5 (32-36) g/dl RDW 12.4 (11.5-14.5) % Plt Count 307 (150-375) k/mm3 MPV 9.8 (7.4-10.4) fl Immature Gran % (Auto) 0.3 (0-0.5) % Neut % (Auto) 58.2 (45.5-73.1) % Lymph % (Auto) 29.6 (18.3-44.2) % Bucks % (Auto) 10.5 H (2.6-8.5) % Eos % (Auto) 1.1 (0-4.4) % Baso % (Auto) 0.3 (0.2-1.2) % Lymph # (Auto) 2.79 (0.9-3.2) K/mm3 Bucks # (Auto) 1.0 H (0.1-0.6) K/mm3 Eos # (Auto) 0.1 (0-0.3) K/mm3 Baso # (Auto) 0.0 (0.0-0.1) K/mm3 Abs Immat Gran (auto) 0.03 (0.00-0.031) K/mm3 Absolute Neuts (auto) 5.5 (1.3-6.7) K/mm3 Absolute Nucleated RBC 0.000 (0.0-0.012) K/mm3 Nucleated RBC % 0.0 (0.0-0.2) % Sodium 140
[2023-11-09 16:00] VITALS: BP 131/89; PULSE 84; RESP 18; O2SAT 100
[2023-11-09 16:14] LABS: Basophils Percent Auto 0.3 % (0.2-1.2); Eosinophils Absolute Auto 0.1 K/mm3 (0-0.3); Eosinophils Percent Auto 1.1 % (0-4.4); Hematocrit 45.1 % (42.0-52.0); Hemoglobin 15.1 g/dL (14.0-18.0); Immature Granulocyte Absolute 0.03 K/mm3 (0.00-0.031); Immature Granulocyte Percent A 0.3 % (0-0.5); Lymphocytes Absolute Auto 2.79 K/mm3 (0.9-3.2); Lymphocytes Percent Auto 29.6 % (18.3-44.2); Mean Corpuscular HGB Conc 33.5 g/dl (32-36); Mean Corpuscular Volume 86.7 fl (80-100); Mean Platelet Volume 9.8 fl (7.4-10.4); Monocytes Percent Auto 10.5 % (2.6-8.5); Neutrophils Absolute Auto 5.5 K/mm3 (1.3-6.7); Neutrophils Percent Auto 58.2 % (45.5-73.1); Platelet Count Result 307 k/mm3 (150-375); Red Cell Distribution Width 12.4 % (11.5-14.5); White Blood Count 9.4 K/mm3 (4.5-10.0)
[2023-11-09 16:28] LABS: Appearance Urine Clear (Clear); Bilirubin Urine Negative (Negative); Blood Urine Negative (Negative); Color Urine Yellow (Yellow); Glucose Urine UA Negative (Negative); Ketones Urine Negative (Negative); Leukocyte Esterase Ur Negative LEU/UL (Negative); Nitrate Urine Negative (Negative); Protein Urine Negative (Negative); Urobilinogen Urine 0.2 mg/dL (<2.0); pH Urine 6.5 (5.0-9.0)
[2023-11-09 16:28] LABS: Alanine Aminotransferase 17 U/L (6-50); Albumin Level 5.1 g/dL (3.5-5.1); Alkaline Phosphatase 100 U/L (38-126); Anion Gap 11 mmol/L (4-12); Aspartate Amino Transferase 33 U/L (17-59); Bilirubin,Total 0.6 mg/dL (0.2-1.3); Blood Urea Nitrogen 14 mg/dL (9-20); Carbon Dioxide 27 mmol/L (22-30); Chloride 102 mmol/L (98-107); Estimated CRCL calculation 90 ml/min; Estimated Glomerular Filt Rate > 60; Glucose 118 mg/dL (65-110); Lipase 58 U/L (23-300); Potassium 3.5 mmol/L (3.4-5.0); Sodium 140 mmol/L (137-145)
--- NOTE | 2023-11-09 16:29 | PC.NURSE ---
pt asked to have iv removed, stated he did not want to stay in dept any longer.
[2023-11-09 17:12] LABS: Add Urine Microscopic? NO; Specific Grav Ur 1.003 (1.001-1.035)
== END 2023-11-09 16:29 | disposition left against medical advice (07) ==
LOC: ANHED 20:59
PROVIDERS: Physician Assistant; Emergency Provider Physician Assistant; PCP Internal Medicine
DX: R10.9 Unspecified abdominal pain (principal); F17.210 Nicotine dependence, cigarettes, uncomplicated
CPT/HCPCS: 36415; 80053; 81003; 83690; 85025; 99283